=== PATIENT | male | born 2005 | race Caucasian/White ===

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

== ENCOUNTER 2024-11-09 18:06 | Emergency (ER) | payer OTHER, BC ==
[2024-11-09 18:27] VITALS: BP 134/70; PULSE 68
[2024-11-09] MEDS: Diphtheria,Pertussis(Acell),Tetanus Vaccine 0.5 ML Syringe IM ONE (18:48)
== END 2024-11-09 19:04 | disposition home or self-care (01) ==
LOC: VM.ED 18:06
DX: S61.011A Laceration without foreign body of right thumb without damage to nail, initial encounter (principal); Z23 Encounter for immunization; Z79.899 Other long term (current) drug therapy; W26.8XXA Contact with other sharp object(s), not elsewhere classified, initial encounter; Y93.89 Activity, other specified; Y99.0 Civilian activity done for income or pay
CPT/HCPCS: 12001; 90471; 90715; 99282-25; 99283; J2003

== ENCOUNTER 2025-01-05 13:44 | Emergency (ER) | payer OTHER, BC ==
[2025-01-05 14:10] VITALS: BP 150/72; PULSE 84
== END 2025-01-05 14:57 | disposition home or self-care (01) ==
LOC: VM.ED 13:44
DX: S69.92XA Unspecified injury of left wrist, hand and finger(s), initial encounter (principal); M54.50 Low back pain, unspecified; V89.2XXA Person injured in unspecified motor-vehicle accident, traffic, initial encounter
CPT/HCPCS: 72100; 73120-LT; 99284